=== PATIENT | female | born 1980 | race Caucasian/White ===

== ENCOUNTER 2023-05-16 11:15 | Emergency (ER) | payer BC, SELFPAY ==
--- NOTE | ~2023-05-16 | XR_ITS ---
EXAMINATION: XR chest 2V DATE: 05/16/2023 12:19 INDICATION: Cough and right upper back pain TECHNIQUE: PA and lateral views of the chest are obtained. COMPARISON: None available FINDINGS: There are airspace opacities of the right upper lobe. No pleural effusion or pneumothorax. The cardiomediastinal silhouette is normal. The visualized bones and soft tissues are unremarkable. IMPRESSION: 1. Right upper lobe pneumonia. Consider followup radiographs or chest CT in six weeks if symptoms per sist after appropriate therapy or if the patient is at high risk for malignancy. Reviewed, dictated and finalized at location [facility] IMPRESSION: 1. Right upper lobe pneumonia. Consider followup radiographs or chest CT in six weeks if symptoms persist after appropriate therapy or if the patient is at hi gh risk for malignancy.
--- NOTE | 2023-05-16 11:47 | ED.URI ---
HPI - URI/Sore Throat General Chief Complaint: Upper Respiratory Infection Stated Complaint: Cough,Congestion,Shortness of Breath Source: patient and RN notes reviewed History of Present Illness HPI Narrative: 42 yo F presents to urgent care with complaints of a dry, hacky, cough x 5 days. Pt states she has also been running fevers this week. Pt states she was first having pain and aches in her bilateral hips and upper legs and now the pain is now in her right upper back and right upper chest when she takes a deep breath. Pt states she will wake up and she thinks she is better b/c she'll be symptom free but by the afternoon, she feels terrible. Pt took a covid test at home which was negative. Denies any congestion, sore throat, N/V/D, or lower leg pain or swelling. Pt has been taking ibuprofen at home. Related Data Allergies Allergy/AdvReac Type Severity Reaction Status Date / Time amoxicillin Allergy Unknown Nausea Verified 05/16/23 11:58 morphine AdvReac Nausea and Verified 05/16/23 11:58 Vomiting Review of Systems Review of Systems: Pertinent positives and pertinent negatives per HPI. [facility] Past Medical History Medical History (Updated 05/16/23 @ 12:38 by Silvia Chan, SHERITA) Acute atopic conjunctivitis of both eyes BMI 25.0-25.9,adult Encounter to establish care Family History Family History (Updated 08/10/21 @ 15:09 by Sreekanth Arzate [facility]) Father Alcoholism Hypertension Cerebrovascular accident Grandparent Alcoholism Grandparent Alcoholism Social History Social History (Updated 08/10/21 @ 15:09 by Sreekanth Arzate [facility]) Smoking status: Never smoker Alcohol intake: never Substance use: never Comments At the time of my signature, I reviewed and agree with the nursing past medical, surgical, social, and family history. There is no relevant family history pertinent to the patient complaint. Exam Narrative: GENERAL: This is a well-nourished, well-developed patient, in no apparent distress. HEAD: normocephalic, atraumatic. EYES: Sclera clear/white. Vision is grossly intact. EARS: External ears normal, auditory canals clear and without drainage, TMs normal without perforation. Hearing grossly intact. NOSE: External nose normal with no obvious nasal discharge, nares without redness, no rhinorrhea. THROAT: Mucous membranes moist, posterior pharynx clear. NECK: Neck supple, non-tender without lymphadenopathy, masses or thyromegaly. CARDIOVASCULAR: Regular rate and rhythm without murmurs, gallops, or rubs. RESPIRATORY: Clear to auscultation. Breath sounds equal bilaterally. No wheezes, rales, or rhonchi. Pt frequently has dry cough mid sentence. SKIN: warm, intact with no suspicious lesions or rash, good texture and turgor. NEURO: awake, alert, and oriented to person, place and time. There were no obvious focal neurologic abnormalities. Course Course Level of Care: Express Care Visit Vital Signs Vital signs: reviewed MDM - URI/Sore Throat Differential Diagnosis Differential diagnosis: Likely upper respiratory infection, otitis media, sinusitis, viral infection, bronchitis and other (PNA) Imaging Data Radiologist's impression: [facility] [address] [address] XRay Report Signed Patient: : 1980 MR#: [id number] Age/Sex: 42 / F Acct:[id number] Loc: [facility]? ? ADM Date: 05/16/23Attending Dr: Ordering Physician: Silvia Chan APRN Date of Service: 05/16/23 Procedure(s): XR chest 2V Accession Number(s): [id number] cc: Amy Hoang APN; Silvia Chan APRN~ EXAMINATION: XR chest 2V DATE: 05/16/2023 12:19 INDICATION: Cough and right upper back pain TECHNIQUE: PA and lateral views of the chest are obtained. COMPARISON: None available FINDINGS: There are airspace opacities of the right upper lobe. No pleural effusion or pneumothorax. The cardiomediastinal silhoue
== END 2023-05-16 12:50 | disposition home or self-care (01) ==
PROVIDERS: Emergency Provider Nurse Practitioner Family; PCP Nurse Practitioner Family
DX: J18.9 Pneumonia, unspecified organism (principal)
CPT/HCPCS: 71046; 99213; G0463